=== PATIENT | male | born 1965 | race Caucasian/White ===

== ENCOUNTER 2018-11-30 11:13 | Day surgery (SDC) | payer OTHER ==
--- NOTE | 2018-11-29 14:02 | PREOPHP ---
DATE OF ADMISSION: 11/30/2018 Scheduled for outpatient surgery, 11/30/2018. HISTORY OF PRESENT ILLNESS: The patient is a 53-year-old male in overall stable health with an enlar ging and symptomatic left inguinal hernia. The patient presented with a history of hernia for 2 year s and has had to wear a truss. It is a moderately large hernia which is going to be repaired under g eneral anesthesia, open approach outpatient with mesh. PAST MEDICAL HISTORY: MEDICATIONS: 1. Amlodipine 10 mg daily. 2. Atenolol 50 mg daily. 3. Lisinopril 20 mg daily. All for hypertension and he takes citalopram. ALLERGIES: 1. PENICILLIN. 2. ASPIRIN. OPERATIONS: Umbilical hernia repair in 2010, right inguinal hernia repair in 2012. REVIEW OF SYSTEMS: No gastrointestinal symptoms. He states he has decreased urine flow due to the h ernia. PHYSICAL EXAMINATION: GENERAL: The patient is 5-foot, 7 inches, 140 pounds. HEENT: Within normal limits. LUNGS: Clear. HEART: Regular rate, rhythm. BREASTS: Without masses. ABDOMEN: Soft and flat. There is a moderately large reducible left inguinal hernia. The right ingu inal canal is intact. GENITOURINARY: Testes and scrotum are within normal limits. Femoral pulses are 3+ to pedal bilatera lly. EXTREMITIES: Without edema. RECTAL: Negative per primary care doctor. NEUROLOGIC: Physiologic. IMPRESSION: Left inguinal hernia. PLAN: Full discussion has been had with the patient regarding the nature of his condition and the na ture of the surgery, indications, alternatives, options and risks including bleeding, infection, recu rrence despite use of mesh, neuritis or neuralgia, testicular or scrotal swelling or other abnormalit y, et cetera. All questions have been answered. He understands and agrees to proceed. Dictated By: PAULINA HAMLIN/BUSTER Conf#: [id number] DID#: [id number]
[2018-11-30] VITALS (15 sets, daily range): BP systolic 107–131; BP diastolic 61–79; PULSE 62–90; RESP 14–25; Ht 170.2 cm; Wt 62.1 kg
[~2018-11-30] VITALS: Ht 170.2 cm; Wt 62.1 kg
[~2018-11-30 11:13] MED LIST: SOD CHLORIDE 0.9% 1,000 ML IV SCH; [UNRECOGNIZED DRUG - REMARK] XX SCH
--- NOTE | 2018-11-30 11:39 | HPN ---
Date/Time of Note Date/Time of Note DATE: 11/30/18 TIME: 11:39 Interval H&P Admission Note Pt. seen H&P reviewed: No system changes PAULINA MARINA Nov 30, 2018 11:39
[2018-11-30] MEDS ORDERED: ATEN50TA PO (12:00)
[2018-11-30] MEDS ORDERED: CITA20TA11 PO (12:01)
[2018-11-30] MEDS ORDERED: LISI-471 PO (12:01)
[2018-11-30] MEDS ORDERED: AMLO-147 PO (12:02)
--- NOTE | 2018-11-30 13:14 | PREAC ---
Date/Time of Note Date/Time of Note DATE: 11/30/18 TIME: 13:11 Anesthesia Eval and Record Evaluation Time Pre-Procedure Interview DATE: 11/30/18 TIME: 13:11 Age 53 Sex male NPO: 8 hrs Preoperative diagnosis LEFT inguinal hernia Planned procedure [facility] Past Medical History Past Medical History: Includes Cardio: HTN Pulm: Smoking Hx (10 cigs/day for the last 2 years), Asthma Surgery & Anesthesia Issues No known issue Meds Anticoagulation: No Beta Monet within 24 hr: Yes Reported Medications Amlodipine Besylate* (Amlodipine Besylate*) 10 Mg Tablet, 10 MG PO DAILY, #30 TAB 11/30/18 Citalopram Hydrobromide* (Celexa*) 20 Mg Tablet, 20 MG PO DAILY, #30 TAB 11/30/18 Lisinopril* (Lisinopril*) 20 Mg Tablet, 20 MG PO DAILY, #30 TAB 11/30/18 Atenolol* (Atenolol*) 50 Mg Tablet, 50 MG PO DAILY, #30 TAB 11/30/18 Current Medications Sodium Chloride 1,000 ml @ 75 mls/hr [id number] IV ; Start 11/30/18 at 06:30; Stop 11/30/18 at 20:00 Miscellaneous Information (*Order Clarification Bulletin) MEDICATION REQUIRES CLARIFICATION: Q8H XX ; Start 11/29/18 at 11:30 Meds reviewed: Yes Allergies Coded Allergies: Penicillins (Verified Allergy, Unknown, 11/30/18) aspirin (Verified Allergy, Unknown, 11/30/18) Allergies Reviewed: Yes Labs/Studies Labs Reviewed: Reviewed by anesthesiologist Result Diagram: 11/30/18 1210 11/30/18 1210 Laboratory Tests 11/30/18 12:10 test: N/A Pre-procedure Exam Last vitals Vital Signs Date Temp Pulse Resp B/P (MAP) Pulse Ox O2 O2 Flow FiO2 Time Delivery Rate 11/30/18 99.5 62 16 131/77 95 12:37 (95) Airway: Adequate mouth opening Mallampati: Mallampati II Teeth: Abnormal (few missing teeth ) Lung: Normal Heart: Normal ASA Physical Status ASA physical status: 2 Emergency: None Planned Anesthetic General/MAC: LMA Planned Pain Management Local by surgeon Pre-operative Attestations Prior to commencing anesthesia and surgery, the patient was re-evaluated, there was verification of: *The patient's identity *The results of appropriate recent lab work and preoperative vital signs *The above evaluation not changing prior to induction *Anesthetic plan, risk benefits, alternative and complications discussed with patient/family; questions answered; patient/family understands, accepts and wishes to proceed. SCOTT HAGER Nov 30, 2018 13:13
[2018-11-30] MEDS ORDERED: FENTAnyl 50 MCG/ML VIAL ONE ×2 (13:17→13:43)
[2018-11-30] MEDS ORDERED: PROPOFOL 20 ML ONE (13:17)
[2018-11-30] MEDS ORDERED: GLYCOPYRROLATE 0.4 MG INJ ONE (13:17)
[2018-11-30] MEDS ORDERED: LIDOCAINE 2% (SDV) 5 ML INJ ONE (13:17)
[2018-11-30] MEDS ORDERED: CLINDAMYCIN 900 MG/D5W (PMX) 50 ML IVPB ONE (13:18)
[2018-11-30] MEDS ORDERED: PHENYLephrine (100 MCG/ML) 5ML SYG ONE (13:31)
[2018-11-30] MEDS ORDERED: LIDOCAINE 1% (MPF) 30 ML INJ ONE (13:34)
[2018-11-30] MEDS ORDERED: BUPIVACAINE 0.5% (SDV) 30 ML INJ ONE (13:34)
[2018-11-30] MEDS ORDERED: ONDANSETRON 4 MG INJ ONE (13:36)
[2018-11-30] MEDS ORDERED: DEXAMETHASONE 4 MG/ML 5 ML INJ ONE (13:36)
[2018-11-30] MEDS ORDERED: POLYMYXIN/BACITRACIN 1L IRRIG IRR ONE (13:41)
[2018-11-30] MEDS ORDERED: HYDROmorphONE 2 MG/ML SYG ONE (13:59)
[2018-11-30] MEDS ORDERED: FENTAnyl 50 MCG/ML VIAL IV PRN ×3 (14:30)
[2018-11-30] MEDS ORDERED: ONDANSETRON 4 MG INJ IV PRN (14:30)
[2018-11-30] MEDS ORDERED: ALBUTEROL 0.083% (NEB) 2.5 MG/3 ML AMP HHN PRN (14:30)
[2018-11-30] MEDS ORDERED: OXYCODONE/ACETAMINOPHEN (5/325) TAB PO PRN ×2 (14:30)
[2018-11-30] MEDS ORDERED: LABETALOL HCL 20MG INJ IV PRN (14:30)
[2018-11-30] MEDS ORDERED: MEPERIDINE 25 MG INJ IV PRN (14:30)
--- NOTE | 2018-11-30 14:37 | SIPON ---
Date/Time of Note Date/Time of Note DATE: 11/30/18 TIME: 14:35 Operative Report Preoperative Diagnosis left inguinal hernia Postoperative Diagnosis left indirect with secondary direct inguinal hernia Operation/Procedure Performed repair left inguinal hernia open with prolene mesh Surgeon see signature line assistant corporation counsel none Anesthesia: general Estimated blood loss: none Transfusion Required none Specimen none Grafts/Implants none Complications none PAULINA MARINA Nov 30, 2018 14:37
--- NOTE | 2018-11-30 14:51 | PAC ---
Date/Time of Note Date/Time of Note DATE: 11/30/18 TIME: 14:49 Post-Anesthesia Notes Post-Anesthesia Note Last documented vital signs POSTOP VITALS: BP 128/78, HR 88 SPO2 97% TEMP 98.9 RR 14 Vital Signs Date Temp Pulse Resp B/P (MAP) Pulse Ox O2 O2 Flow FiO2 Time Delivery Rate 11/30/18 99.5 62 16 131/77 95 12:37 (95) Activity: WNL Respiratory function: WNL Cardiovascular function: WNL Mental status: Baseline Pain reasonably controlled: Yes Hydration appropriate: Yes Nausea/Vomiting absent: Yes SCOTT HAGER Nov 30, 2018 14:51
[2018-11-30] MEDS ORDERED: POLYMYXIN/BACITRACIN 1L IRRIG ONE (15:03)
--- NOTE | 2018-11-30 16:34 | NUR ---
SDS: PATIENT D/C HOME IN STABLE CONDITION, VS WITHIN NORMAL LIMITS, NO PAIN OR DISCOMFORT REPORTED. ALL D/C INSTRUCTIONS PROVIDED TO PATIENT AND FAMILY. THEY VERBALIZED UNDERSTANDING AND READINESS TO GO HOME. NO BLEEDING AT INCISION SITE.
--- NOTE | 2018-11-30 17:14 | OPR ---
DATE OF OPERATION: 11/30/2018 SURGEON: Paulina Edwards MD CENTER MANAGER: None. ANESTHESIOLOGIST: Leno Adhikari CRNA PREOPERATIVE DIAGNOSIS: Left inguinal hernia. POSTOPERATIVE DIAGNOSIS: Left indirect with secondary direct inguinal hernia. OPERATION PERFORMED: Repair of left inguinal hernia with Prolene mesh. DESCRIPTION OF PROCEDURE: The patient was taken to the operating room and under general anesthesia with sequential compression device stockings in place, he was prepped and draped in the usual fashion. A transverse curvilinear left groin incision was made, achieving hemostasis with cautery and opening the external oblique aponeurosis through the external ring, preserving the ilioinguinal nerve. The spermatic cord was very bulky and mobilized at the pubic tubercle. There was a small direct inguinal hernia representing failure of the lateral half of the floor of the inguinal canal, but the primary hernia was indirect. There was a small lipoma of the cord laterally. The sac was identified and opened. There was omentum within the sac and multiple adhesions to the sac wall. These were taken down and a high circumferential dissection was performed into the internal ring and the omentum and sac were reduced, protecting the spermatic cord. The field was irrigated with antibiotic solution and hemostasis was secured with cautery. The repair was accomplished by taking a piece of Prolene mesh soaked in antibiotic solution, cut and tapered appropriately, measuring approximately 5 x 9 cm. First, the inferior edge of the mesh was sutured to the shelving edge of inguinal ligament starting at pubic tubercle and extending lateral to the internal ring with continuous 2-0 Prolene. Then, the lateral aspect of the mesh was split longitudinally so the tails could encircle the cord. Following this, the medial-superior edge of the mesh was sutured to the transversus tendon again starting at pubic tubercle and extending lateral to the internal ring with continuous 2-0 Prolene. One suture was taken just lateral to the internal ring to tack the superior tail over the inferior tail to the inguinal ligament with 2-0 Prolene. The newly created internal ring of mesh was released slightly to avoid any constriction of the cord. The repair appeared very satisfactory without tension. Local infiltration was performed with 0.5% Marcaine and 1% lidocaine both plain. After ascertaining that hemostasis was secure, the external oblique aponeurosis was closed over the spermatic cord with continuous 2-0 Vicryl. Rosemarie's fascia and subcutaneous tissue was closed with interrupted 3-0 Vicryl and the skin was closed with continuous 4-0 Monocryl subcuticular suture. Mastisol and 1/2-inch Steri-Strips were applied, followed by dry sterile dressings. At the end of the procedure, the left testicle was readily retracted well down into the scrotum. The patient tolerated the procedure well and left the operating room in good condition. Dictated By: PAULINA HAMLIN/BUSTER Conf#: [id number] DID#: [id number] MTDD
== END 2018-11-30 16:39 | disposition home or self-care (01) ==
LOC: SDS 11:13
PROVIDERS: ATTEND Surgery
DX: K40.90 Unilateral inguinal hernia, without obstruction or gangrene, not specified as recurrent (principal); I10 Essential (primary) hypertension; F17.200 Nicotine dependence, unspecified, uncomplicated; J45.909 Unspecified asthma, uncomplicated
CPT/HCPCS: 49505; 71045; 80053; 81003; 85025; 85610; 85730; 93005; J1100; J1170; J2370; J2405; J3010; Z7512; Z7610